=== PATIENT | male | born 2000 | race Caucasian/White ===

== ENCOUNTER 2019-01-26 00:04 | Emergency (ER) | payer BC, OTHER, SELFPAY ==
[~2019-01-26] VITALS: Ht 165.1 cm; Wt 92.0 kg
--- NOTE | 2019-01-26 00:16 | NUR ---
PT C/O ABDOMINAL PAIN X1 DAY WITH PAIN IMMEDIATELY AFTER EATING OR WHEN MOVING AROUND, REPORTS PAIN THROUGHOUT ABDOMEN, TENDER WITH PALP IN ALL QUADRANTS. PT REPORTS VOMITING EACH MEAL TODAY. PT REPORTS SOB, ATTRIBUTES IT TO VAPING. PT DENIES CHEST PAIN, BREATHING UNLABORED. PT BREATH SOUNDS CLEAR. PT CONNECTED TO MONITORING, SAFETY MEASURES IN PLACE, CALL LIGHT WITHIN REACH.
--- NOTE | 2019-01-26 00:19 | NUR ---
ERP IN ROOM TO EVAL PT AND DISCUSS POC.
--- NOTE | 2019-01-26 00:20 | NUR ---
PT REPORTS BLOOD IN STOOL LAST X3 WEEKS. DENIES PAIN UNTIL TODAY.
[2019-01-26] MEDS ORDERED: ONDANSETRON ODT 4 MG PO ONE ×2 (00:30→01:30)
[2019-01-26] MEDS ORDERED: ONDANSETRON ODT 4 MG ONE ×2 (00:35→01:05)
--- NOTE | 2019-01-26 00:50 | NUR ---
PT PROVIDED WITH WATER FOR PO CHALLENGE. PT VOMITED X3.
--- NOTE | 2019-01-26 00:51 | NUR ---
REPORT GIVEN TO LUIS DIAZ.
--- NOTE | 2019-01-26 00:58 | NUR ---
PT RESTING ON SUBHASHWENDY ON HIS CELL PHONE, STATED THAT HE FEELS BETTER, PROVIDED PT WITH WATER FOR PO CHALLENGE
--- NOTE | 2019-01-26 01:06 | NUR ---
DISCUSSED PT WITH VOMITONG AFTER PO FLUIDS WITH ERP, ORDER RECEIVED FOR ADDITIONAL ORDER OF ZOFRAN. PT MEDICATED PER MAR
[2019-01-26 01:07] VITALS: BP 126/55
--- NOTE | 2019-01-26 01:23 | NUR ---
PT TOLERATING PO FLUIDS, DENIES PAIN OR NAUSEA
== END 2019-01-26 01:30 | disposition home or self-care (01) ==
LOC: ED 01:24
DX: R10.84 Generalized abdominal pain (principal); K92.1 Melena; R19.7 Diarrhea, unspecified; R11.2 Nausea with vomiting, unspecified
CPT/HCPCS: 99283; Q0162

== ENCOUNTER 2019-01-31 18:23 | Emergency (ER) | payer BC ==
[~2019-01-31] VITALS: Ht 165.1 cm; Wt 91.0 kg
[2019-01-31 18:30] VITALS: BP 129/70
--- NOTE | 2019-01-31 19:25 | NUR ---
PT HAS LEFT LOWER ABDOMINAL PAIN. PT WAS SEEN HERE LAST [place] AND WAS TOLD TO COME BACK IF PAIN HAS NOT SUBSIDED. PT RESTING ON GURNEY. NOT IN ANY DISTRESS.
[2019-01-31 20:03] LABS: MICROSCOPIC NOT IND
[2019-01-31 20:06] LABS: CULTURE INDICATED? NO
[2019-01-31 20:16] LABS: BASOPHILS # (AUTO) 0.02 x10^3/uL (0-0.3); BASOPHILS % (AUTO) 0 % (0-1); EOSINOPHILS # (AUTO) 0.06 x10^3/uL (0-0.8); EOSINOPHILS % (AUTO) 1 % (1-7); LYMPHOCYTES # (AUTO) 2.32 x10^3/uL (1-6.1); LYMPHOCYTES % (AUTO) 30 % (22-44); MD NO; MEAN CORPUSCULAR HEMOGLOBIN 30.2 pg (27.5-34.5); MEAN CORPUSCULAR HGB CONC 33.5 g/dL (33.2-36.2); MEAN PLATELET VOLUME 7.8 fL (7.4-10.4); MONOCYTES # (AUTO) 0.51 x10^3/uL (0-1.4); MONOCYTES % (AUTO) 7 % (2-9); NEUTROPHILS # (AUTO) 4.96 x10^3/uL (1.8-8.0); NEUTROPHILS % (AUTO) 63 % (42-75); PLATELET COUNT 254 x10^3/uL (130-400); RED BLOOD COUNT 5.11 x10^6/uL (4.38-5.82); RED CELL DISTRIBUTION WIDTH 12.8 % (9.4-14.8)
[2019-01-31 20:28] LABS: ALANINE AMINOTRANSFERASE 48 U/L (12-78); ALBUMIN 4.4 g/dL (3.4-5.0); ANION GAP 5 mmol/L (5-15); CALCIUM 9.5 mg/dL (8.5-10.1); CHLORIDE 111 mmol/L (98-107); CREATININE 0.78 mg/dL (0.7-1.3)
[2019-01-31 20:31] LABS: ALKALINE PHOSPHATASE 110 U/L (45-117); BILIRUBIN,TOTAL 0.2 mg/dL (0.2-1.0); TOTAL PROTEIN 8.4 g/dL (6.4-8.2)
== END 2019-02-01 00:12 ==
LOC: ED 20:26
DX: R10.32 Left lower quadrant pain (principal); R10.12 Left upper quadrant pain
CPT/HCPCS: 36415; 74021; 80053; 81003; 83690; 85025; 99284

== ENCOUNTER → 2020-02-13 | Outpatient (CLI) | payer BC | END | disposition home or self-care (01) | LOC: RAD 10:10 | PROVIDERS: ATTEND Family Medicine | DX: R10.9 Unspecified abdominal pain (principal) | CPT/HCPCS: 76705 ==

== ENCOUNTER 2020-05-28 17:35 | Emergency (ER) | payer BC ==
[~2020-05-28] VITALS: Ht 165.1 cm; Wt 96.2 kg
[2020-05-28 18:12] VITALS: BP 120/71
[2020-05-28] MEDS ORDERED: IBUPROFEN 800 MG TABLET PO ONE (18:30)
== END 2020-05-28 18:24 | disposition home or self-care (01) ==
LOC: ED 18:22
DX: T23.122A Burn of first degree of single left finger (nail) except thumb, initial encounter (principal); F17.210 Nicotine dependence, cigarettes, uncomplicated; G89.11 Acute pain due to trauma; M79.602 Pain in left arm; T31.0 Burns involving less than 10% of body surface; X08.8XXA Exposure to other specified smoke, fire and flames, initial encounter; Y93.89 Activity, other specified; Y92.89 Other specified places as the place of occurrence of the external cause; Y99.8 Other external cause status
CPT/HCPCS: 16020; 99282

== ENCOUNTER 2020-07-07 15:36 | Emergency (ER) | payer BC ==
--- NOTE | 2020-07-07 15:50 | NUR ---
triage: patient arrives with abdominal pain, nausea and vomiting that's ongoing for six months; sees [facility].
[2020-07-07] MEDS ORDERED: FAMOTIDINE 20 MG TABLET ONE (16:19)
[2020-07-07] MEDS ORDERED: MAALOX/HYOSCYAMINE/LIDOCAINE 45 ML BTL ONE (16:20)
[2020-07-07] MEDS ORDERED: ONDANSETRON ODT 4 MG ONE (16:20)
[2020-07-07 16:23] LABS: BASOPHILS % (AUTO) 0 % (0-1); EOSINOPHILS % (AUTO) 1 % (1-7); LYMPHOCYTES % (AUTO) 32 % (22-44); MEAN CORPUSCULAR HEMOGLOBIN 30.4 pg (27.5-34.5); MEAN CORPUSCULAR HGB CONC 34.4 g/dL (33.2-36.2); MEAN PLATELET VOLUME 7.6 fL (7.4-10.4); MONOCYTES % (AUTO) 7 % (2-9); NEUTROPHILS % (AUTO) 61 % (42-75); PLATELET COUNT 245 x10^3/uL (130-400); RED BLOOD COUNT 5.02 x10^6/uL (4.38-5.82); RED CELL DISTRIBUTION WIDTH 12.6 % (9.4-14.8)
[2020-07-07 16:24] LABS: MD NO
[2020-07-07] MEDS ORDERED: MAALOX/HYOSCYAMINE/LIDOCAINE 45 ML BTL PO ONE (16:30)
[2020-07-07] MEDS ORDERED: ONDANSETRON ODT 4 MG PO ONE (16:30)
[2020-07-07] MEDS ORDERED: FAMOTIDINE 20 MG/2 ML IVPush ONE (16:30)
[2020-07-07 16:31] LABS: ALANINE AMINOTRANSFERASE 32 U/L (12-78); ALBUMIN 4.2 g/dL (3.4-5.0); ANION GAP 4 mmol/L (5-15); CHLORIDE 113 mmol/L (98-107); CREATININE 0.78 mg/dL (0.7-1.3)
[2020-07-07 16:34] LABS: ALKALINE PHOSPHATASE 104 U/L (45-117); BILIRUBIN,TOTAL 0.3 mg/dL (0.2-1.0); TOTAL PROTEIN 8.1 g/dL (6.4-8.2)
--- NOTE | 2020-07-07 16:37 | NUR ---
MEDICATED PER ORDERS. NO N/V
--- NOTE | 2020-07-07 17:30 | NUR ---
PT RESTING, NO N/V. AWAITING RESULTS
[2020-07-07 18:08] VITALS: BP 133/82
--- NOTE | 2020-07-07 18:09 | NUR ---
Patient/Caregiver given discharge instructions and they have confirmed that they understand the instructions. Patient ambulatory with steady gait.
== END 2020-07-07 18:14 | disposition home or self-care (01) ==
LOC: ED 18:13
DX: K29.00 Acute gastritis without bleeding (principal); G89.29 Other chronic pain; R10.13 Epigastric pain; R11.2 Nausea with vomiting, unspecified
CPT/HCPCS: 36415; 76700; 80053; 83690; 85025; 99284; Q0162

== ENCOUNTER 2020-10-11 19:15 | Emergency (ER) | payer BC ==
[~2020-10-11] VITALS: Ht 165.1 cm; Wt 90.0 kg
[2020-10-11 19:22] VITALS: BP 112/73
--- NOTE | 2020-10-11 20:04 | NUR ---
Pt alert and oriented x4, GCS 15, endorses nausea, vomiting since Monday morning, unable to keep anything down. Denies diarrhea or complaints. Endorses generalized abdominal pain and cramping, constant, worse when wretching or actively vomiting. Last PO 3pm, last vomiting episode at same time. States this occurs in conjunction w/ eating and anxiety. States he has never been dx with an eating disorder or a GI diagnosis. Says he uses marijuana daily, and states when he has attempted marijuana cessation, he has vomited more frequently. Pt is fully vaccinated, denies covid symptoms or positive contacts.
[2020-10-11] MEDS ORDERED: ONDANSETRON 2MG/ML, 2ML ONE (20:26)
[2020-10-11] MEDS ORDERED: MAALOX/HYOSCYAMINE/LIDOCAINE 45 ML BTL ONE (20:26)
[2020-10-11] MEDS ORDERED: ZIPRASIDONE 20 MG INJ IM ONE ×2 (20:26→20:30)
[2020-10-11] MEDS ORDERED: FAMOTIDINE 20 MG/2 ML ONE (20:28)
[2020-10-11] MEDS ORDERED: MAALOX/HYOSCYAMINE/LIDOCAINE 45 ML BTL PO ONE (20:30)
[2020-10-11] MEDS ORDERED: SODIUM CHLORIDE FLUSH 10ML SYR IVF ONE (20:30)
[2020-10-11] MEDS ORDERED: SODIUM CHLORIDE 0.9% 1,000ML IVBOLUS ONE (20:30)
[2020-10-11] MEDS ORDERED: FAMOTIDINE 20 MG/2 ML IVPush ONE (20:30)
[2020-10-11] MEDS ORDERED: ONDANSETRON 2MG/ML, 2ML IVPush ONE (20:30)
[2020-10-11] MEDS ORDERED: METRONIDAZOLE PMX 500MG/100ML 100 ML ONE (20:57)
[2020-10-11 21:11] LABS: BASOPHILS % (AUTO) 0 % (0-1); EOSINOPHILS % (AUTO) 0 % (1-7); LYMPHOCYTES % (AUTO) 26 % (22-44); MEAN CORPUSCULAR HEMOGLOBIN 30.1 pg (27.5-34.5); MEAN CORPUSCULAR HGB CONC 34.5 g/dL (33.2-36.2); MEAN PLATELET VOLUME 7.7 fL (7.4-10.4); MONOCYTES % (AUTO) 8 % (2-9); NEUTROPHILS % (AUTO) 65 % (42-75); PLATELET COUNT 279 x10^3/uL (130-400); RED BLOOD COUNT 5.48 x10^6/uL (4.38-5.82); RED CELL DISTRIBUTION WIDTH 12.9 % (9.4-14.8)
[2020-10-11 21:20] LABS: ALANINE AMINOTRANSFERASE 65 U/L (12-78); ALBUMIN 4.6 g/dL (3.4-5.0); ANION GAP 9 mmol/L (5-15); CHLORIDE 109 mmol/L (98-107); CREATININE 0.83 mg/dL (0.7-1.3)
[2020-10-11 21:22] LABS: ALKALINE PHOSPHATASE 104 U/L (45-117); BILIRUBIN,TOTAL 0.6 mg/dL (0.2-1.0); TOTAL PROTEIN 9.1 g/dL (6.4-8.2)
--- NOTE | 2020-10-11 21:50 | NUR ---
Urine sent to lab at this time, pt being PO challeneged, denies any nausea at this time. Will reassess.
[2020-10-11 22:02] LABS: MICROSCOPIC INDICATED
--- NOTE | 2020-10-11 22:43 | NUR ---
Patient/Caregiver given discharge instructions and they have confirmed that they understand the instructions. Patient ambulatory with steady gait. NAD, all questions answered appropriately, denies additional needs at this time. No personal belongings left in room after discharge.
== END 2020-10-11 22:45 | disposition home or self-care (01) ==
LOC: ED 22:40
DX: R11.2 Nausea with vomiting, unspecified (principal); R10.13 Epigastric pain; E66.9 Obesity, unspecified; Z68.33 Body mass index [BMI] 33.0-33.9, adult
CPT/HCPCS: 36415; 74021; 80053; 81001; 83690; 85025; 93005; 96361; 96372; 96374; 96375; 99285; J2405; J3486; J7030